=== PATIENT | female | born 1970 | race Caucasian/White ===

== ENCOUNTER 2019-05-21 05:55 | Day surgery (SDC) | payer OTHER ==
[~2019-05-21] VITALS: Ht 167.6 cm; Wt 90.7 kg
--- NOTE | ~2019-05-21 | OR ---
[facility] [address] [place], [place] [address] [place] DATE OF OPERATION: 05/21/2019 SURGEON: Dk Patel MD PREOPERATIVE DIAGNOSES: 1. 9 mm distal right ureteral calculus. 2. Acute renal insufficiency. POSTOPERATIVE DIAGNOSES: 1. 9 mm distal right ureteral calculus. 2. Acute renal insufficiency. NAMES OF PROCEDURES: 1. Diagnostic cystoscopy with right retrograde pyelogram. 2. Right semi-rigid ureteroscopy with laser lithotripsy and basket extraction of stones. 3. Insertion of right ureteral stent. ANESTHESIA: General. ESTIMATED BLOOD LOSS: Minimal. COMPLICATIONS: None. SPECIMENS: Fragments of obstructing right ureteral calculus sent to the lab for stone analysis. DRAINS: A 6 x 24 cm double-J ureteral stent inserted into the right ureter. INDICATIONS FOR PROCEDURE: Ms. Carty is a very pleasant 48-year-old female with a history of migraines, on topiramate, who presented to my clinic yesterday upon referral from Alex Lam. Since late February, the patient had been experiencing intermittent right flank and lower quadrant discomfort along with lethargy and mild nausea. She was evaluated by her test equipment mechanic to check the urinalysis at that time and did appreciate blood in the urine. However, it was presumed at that time that the patient had successfully passed a kidney stone, as she does have a history of stones in the past. Recently, the patient began to PATIENT NAME: GEOVANNI CARTY OPERATIVE REPORT DATE OF : 74 REPORT #: [id number] PHYSICIAN: DK PATEL MD PCP: ALEX LAM REPORT IS CONFIDENTIAL AND NOT TO BE RELEASED WITHOUT AUTHORIZATION [facility] [address] [place], [place] [address] [place] feel significantly worse and she sought help from her primary care provider, Alex Lam. She underwent a BMP, which revealed a GFR of 45 and a creatinine of 1.34. There was no evidence of infection or blood in her urine at that time. CT scan was performed, which revealed a 9 mm obstructing calculus located in the distal right ureter with associated hydronephrosis. There were no other stones appreciated on the remainder of the CT scan. The patient presented yesterday with this information, requesting surgical intervention. After discussion of the risks and benefits of the procedure, the patient presents today to undergo urgent ureteroscopy with laser lithotripsy and basket extraction of stone fragments. OPERATIVE FINDINGS: 1. On cystoscopy, there was no evidence of any suspicious masses, lesions, or stones. Bilateral ureteral orifices are in their normal anatomic location. I am to able to appreciate some efflux from the left ureteral orifice, but nothing from the right. 2. Right retrograde pyelogram was performed, which revealed a rather large 9-10 mm stone present in the distal right ureter, approximately 5 cm from the ureterovesical junction. Once the stone was extracted, a repeat retrograde pyelogram revealed approximately 1 cm sized area of narrowing in the ureter, likely related to the area of impaction of the previous obstructing stone. 3. The right ureter was cannulized using a semi-rigid ureteroscope over a Sensor wire. The 9 mm stone was fragmented using a holmium laser at 8 and 0.8 settings. The stone fragmented easily and the fragments were collected using a Zero Tip basket without difficulty. 100% of the stone burden was successfully removed from the distal right ureter. 4. A 6 x 24 cm double-J ureteral stent was inserted into the right ureter at the end of the procedure. DESCRIPTION OF PROCEDURE: After informed consent was obtained, the patient was taken back to the operating room. She was transferred from the [facility] to the operating room table, where general anesthesia was induced. She was placed in the dorsal lithotomy position and her genitalia were prepped and draped in a standard sterile fashion. Using a 30-degree lens on a 22.5-Bulgarian introducer, a rigid cystoscope was inserted through the urethra and into her bladder under direct visualization. Jaimes-endoscopic views of bladder were then obtained. Please see above findings. I then turned my attention to the right ureteral orifice. I advanced a cone-tipped catheter to the level of the right ureteral orifice and a right retrograde pyelogram was performed. Please see above findings. I then removed the cystoscope and inserted a semi-rigid ureteroscope with a Sensor wire and gently passed the semi-rigid ureteroscope with the guidance of the wire into the distal right ureter. The right ureter cannulated easily. Semi-rigid ureteroscopy was performed and the obstructing stone was visualized. It was fragmented using holmium laser without difficulty. The stone fragments were then collected using a Zero Tip PATIENT NAME: GEOVANNI CARTY OPERATIVE REPORT DATE OF : 74 REPORT #: [id number] PHYSICIAN: DK PATEL MD PCP: ALEX LAM REPORT IS CONFIDENTIAL AND NOT TO BE RELEASED WITHOUT AUTHORIZATION [address] [address] [place] basket. Please see above findings. I then repeated a retrograde pyelogram through the semi-rigid ureteroscope to visualize the upper portion of the collecting system. It was at that time that I also noticed a 1 cm or so area of narrowing in the mid distal ureter consistent with the previous impaction side of the stone. I advanced a Sensor wire through the semi-rigid ureteroscope and into the right renal pelvis. Fluoroscopy confirmed adequate placement of the wire. Over the wire, a 6 x 24 cm double-J ureteral stent was inserted into the right ureter under direct visualization without difficulty. The wire was pulled and an adequate proximal loop was seen within the right renal pelvis along with an adequate distal loop within the bladder. The patient's bladder was then drained of urine and stone fragments. The stone fragments were then placed in a specimen cup to be sent to Pathology. The procedure was then terminated. The patient tolerated the procedure well without any complication. She will now be transferred to the postanesthesia care unit in stable condition. DISPOSITION: I discussed the details of today's procedure with the patient and answered all of her questions. She will be sent home later today with some additional Percocet 5/325 p.r.n. pain, dispense #20, along with Augmentin 875 mg p.o. b.i.d. for a total of 7 days. She will be scheduled to return to clinic in two weeks to undergo cystoscopy with right ureteral stent extraction. At that time, we will also discuss the need for her to switch anti-seizure medicines as the topiramate is likely promoting her kidney stone issue. MD SHAYAN Bourne/JUAN C /[id number] Copies: ~ PATIENT NAME: GEOVANNI CARTY OPERATIVE REPORT DATE OF : 74 REPORT #: [id number] PHYSICIAN: DK PATEL MD PCP: ALEX LAM REPORT IS CONFIDENTIAL AND NOT TO BE RELEASED WITHOUT AUTHORIZATION
[~2019-05-21 05:55] MED LIST: ACETAMINOPHEN325 M1 PO; ALEVE220 MG PO; B-100 COMPLEX100 MG PO; CALCIUM 600 +1 EAC7 PO; CYCLOBENZAPRINE5 MG PO; CYTOMEL5 MCG PO; EVENING PRIMRO500 M1 PO; FIORINAL 50-321 EACH PO; FLOMAX0.4 MG PO; FLONASE2 SPRAY; IBUPROFEN IB200 MG PO; LEVOTHYROXINE137 MCG PO; MAG GLYCINATE100 MG PO; MAXALT5 MG PO; MILK THISTLE200 M1 PO; NORCO 5-325 TA1 EACH PO; OMEGA-31000 MG PO; PERCOCET 5-3251 EACH PO; PROTONIX40 MG PO; SENOKOT8.6 MG PO; SPRINTEC1 EACH PO; SUDAFED30 MG PO; SYNTHROID125 MCG PO; TRAMADOL HCL50 MG PO; VITAMIN B-122500 MCG SL; VITAMIN B-2100 MG PO; VITAMIN B-50 C0.4 MG PO; VITAMIN C500 M1 PO; VITAMIN D35000 UNIT PO; VIVELLE-DOT1 EAC1 TD; ZINC50 MG PO
[2019-05-21] MEDS ORDERED: CYCLOBENZAPRINE10 MG PO (06:24)
[2019-05-21] MEDS ORDERED: TOPROL XL25 MG PO (06:25)
[2019-05-21] MEDS ORDERED: TOPAMAX25 MG PO (06:25)
--- NOTE | 2019-05-21 08:07 | NUR ---
PT IS ALERT, ORIENTED AND PLEASANT. SHE SEEMED TO BE PREPARED, HAD VISIT WITH DR PATEL YESTERDAY. PTS' DAUGHTER WITH ARRIVE TO TAKE PT HOME. EXTENDED A BLESSING, WILL FOLLOW NEEDED
--- NOTE | 2019-05-21 08:51 | NUR ---
05/21/19 0851 Shana Rueda 0838- PT ARRIVES TO PACU AROUSABLE TO VOICE. RESP EVEN AND UNLABORED. OXYGEN SAT HIGH 90'S TO 100% ON 6L VIA MASK. PT FALLS TO SLEEP WHEN NOT BEING TALKED TO. 0850- OXYGEN TITRATED OFF. 0851- DR. PATEL AT THE BEDSIDE TO TALK WITH THE PT.
--- NOTE | 2019-05-21 09:14 | NUR ---
PT RETURNS TO ROOM 2 FROM PACU ON RA. PT DROWSY BUT DENIES PAIN/NAUSEA. DRY CHUX PAD APPLIED UNDER PT. PT PROVIDED WITH WATER AND CRACKERS AND ENC TO EAT AND DRINK TOLERATED. LIGHTS DIMMED IN ROOM AND PT REQUESTS TO REST AT THIS TIME. CALL LIGHT WITHIN REACH
[2019-05-21] MEDS ORDERED: PERCOCET 5-3251 EACH PO (09:30)
[2019-05-21] MEDS ORDERED: AUGMENTIN 875-1 EACH PO (09:30)
--- NOTE | 2019-05-21 10:15 | NUR ---
HOURLY ASSESSMENT COMPLETE. PT DENIES PAIN/NAUSEA. VSS. DISCUSSED DC CRITERIA AND PT AGREEABLE. PT PROVIDED WITH HALIMA. CALL LIGHT WITHIN REACH
--- NOTE | 2019-05-21 10:23 | NUR ---
PT UP TO BATHROOM TO VOID. PT TOLERATES AMBULATION AND IS ABLE TO VOID 500 PINK COLORED URINE WITHOUT DIFFICULTY. PT STAND BY ASSIST BACK TO BED BY RAFFAELE SOW. PT HAS COUGH AND USES PERSONAL INHALER AT BEDSIDE. LINENS ON BED CHANGED. WARM AIR FROM BEIR HUGGER APPLIED DUE TO PT C/O BEING COLD. CALL LIGHT WITHIN REACH
--- NOTE | 2019-05-21 10:54 | NUR ---
PT TOLERATES PO FLUID AND FOOD. DENIES PAIN/NAUSEA AND HAS VOIDED W/OUT DIFFICLTY. PT MEETS DC CRITERIA AND VOICES THAT SHE WOULD LIKE TO GO HOME AT THIS TIME. DC VSS.
--- NOTE | 2019-05-21 11:07 | NUR ---
DC INSTRUCTIONS WITH PRECAUTIONS PROVIDED AT BEDSIDE. PT VERBALIZES UNDERSTANDING AND DENIES FURTHER QUESTIONS. PRESCRIPTION GIVEN WITH PAIN MEDICINE PRECAUTIONS AND INSTRUCTIONS. IV DC'D WNL. PT TO DRESS SELF AND DENIES NEED FOR ASSISTANCE. WAITING ON DAUGHTER FOR A RIDE HOME. CALL LIGHT WITHIN REACH
--- NOTE | 2019-05-21 11:39 | NUR ---
1127- PT'S CHILD OVER 18 ARRIVES TO TRANSPORT PT HOME. PT TRANSPORTED IN WHEELCHAIR TO VEHICLE BY DS VOLUNTEER.
== END 2019-05-21 11:27 | disposition home or self-care (01) ==
LOC: DS 05:55
PROVIDERS: Urology
PROC: BT1DYZZ Fluoroscopy of Right Kidney, Ureter and Bladder using Other Contrast (ICD-10-PCS; 2019-05-21)
PROC: 0TC68ZZ Extirpation of Matter from Right Ureter, Via Natural or Artificial Opening Endoscopic (ICD-10-PCS; principal; 2019-05-21 06:45)
PROC: 0T768ZZ Dilation of Right Ureter, Via Natural or Artificial Opening Endoscopic (ICD-10-PCS; 2019-05-21 06:45)
DX: N13.2 Hydronephrosis with renal and ureteral calculous obstruction (principal); N28.9 Disorder of kidney and ureter, unspecified; G43.909 Migraine, unspecified, not intractable, without status migrainosus; Z91.040 Latex allergy status; Z91.041 Radiographic dye allergy status; Z79.899 Other long term (current) drug therapy; Z79.51 Long term (current) use of inhaled steroids
CPT/HCPCS: 00918; 74420; 82365; C1769; C2617; J0330; J0696; J1100; J1200; J1885; J2250; J2405; J2704; J2765; J3475; J7120; Q9967

== ENCOUNTER 2022-02-09 19:13 | Emergency (ER) | payer OTHER ==
[~2022-02-09] VITALS: Ht 167.6 cm; Wt 92.8 kg
[~2022-02-09 19:13] MED LIST changes: +AUGMENTIN 875-1 EACH PO; +CYCLOBENZAPRINE10 MG PO; +TOPAMAX25 MG PO; +TOPROL XL25 MG PO
--- OUTSIDE RECORDS SUMMARY | 2022-02-09 19:16 | XMS ---
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 Ollie has no Care Guidelines for this patient. Fariba VISIT COUNT (12 MO.) 1 JEFF Thomson TOTAL 1 NOTE: Visits indicate total known visits. ED/C VISIT TRACKING (12 MO.) 02/09/2022 19:14 JEFF Dykes [place] TYPE: Emergency COMPLAINT: - ABD PAIN, VOMITING INPATIENT VISIT TRACKING (12 MO.) No inpatient visits to display in this time frame [email or web address]
[2022-02-09] MEDS ORDERED: PILOCARPINE HCL5 MG PO (20:01)
[2022-02-09] MEDS ORDERED: RIZATRIPTAN10 MG PO (20:02)
[2022-02-09] MEDS ORDERED: SYNTHROID125 MCG PO (20:02)
[2022-02-09] MEDS ORDERED: METHYLPHENIDATE20 M1 PO (20:03)
[2022-02-09] MEDS ORDERED: SUDOGEST30 MG PO (20:05)
[2022-02-09] MEDS ORDERED: PERCOCET 5-3251 EACH PO (21:45)
[2022-02-09] MEDS ORDERED: ONDANSETRON ODT8 MG PO (21:45)
== END 2022-02-09 22:25 | disposition home or self-care (01) ==
LOC: ED 19:13
DX: N13.2 Hydronephrosis with renal and ureteral calculous obstruction (principal); Z91.040 Latex allergy status; Z91.041 Radiographic dye allergy status; Z79.899 Other long term (current) drug therapy
CPT/HCPCS: 36415; 74176; 80053; 81001; 84703; 85025; 96374; 96375; 96376; 99284-25; A9270; J1170; J1885; J2405